=== PATIENT | female | born 2005 | race Caucasian/White ===

== ENCOUNTER 2024-07-08 09:58 | Emergency (ER) | payer BC, SELFPAY ==
[2024-07-08 10:11] VITALS: BP 118/75
--- NOTE | 2024-07-08 11:28 | ED.GENMED ---
Addendum entered and electronically signed by Oliver Guzmán PA-C 07/11/24 09:02:
Urine culture shows greater than 100,000 colony-forming units of Klebsiella. Sensitivities reviewed. Called patient to discuss these results. Prescription for Omnicef 300 mg twice a day was sent to her pharmacy.
Original Note:
History of Present Illness
<Jorge A Vital DO - Last Filed: 07/09/24 09:25>
General
Chief Complaint: Abdominal Symptoms
Source: patient
Time Seen by Provider: 07/08/24 11:02
History of Present Illness
History of Present Illness:
18-year-old female presents to the emergency room complaining of abdominal pain. Pain is located in the right lower abdomen. Began 2 to 3 days ago and has been waxing and waning in intensity. This morning the pain was more severe. She had nausea
but no vomiting. No diarrhea or constipation. She denies any dysuria, frequency or abnormal vaginal discharge. Patient denies any possibility of . She has not taken anything for pain.
Phy Exam
<Jorge A Vital DO - Last Filed: 07/09/24 09:25>
Physical Exam
Physical Exam:
General: Awake, Alert, Oriented X3. No acute distress.
Vitals: unremarkable
Head: Atraumatic
Eyes: Pupils equal, EOMI
Throat: Airway intact, no exudates
Neck: Trachea midline
Lungs: Clear and equal b/l
Heart: Regular rate, no murmurs
Abd: Soft, right lower quadrant tenderness to palpation, No pulsatile mass
Neuro: Nonfocal
Skin: Warm, dry, no rash
Extremities: pulses equal b/l, no edema
Course
<Jorge A Vital DO - Last Filed: 07/09/24 09:25>
Orders/Labs/Results
Orders:
Orders
08/21/24 11:26
Test Result ONCE
US Pelvis [US Pelvis Only (non-obstetric)] Urgent
Comment:
Reason For Exam: r lower abd/pelvic pain
07/08/24 11:27
US Abdomen - Appendix Only Urgent
Comment:
Reason For Exam: rlq/pelvic pain
07/08/24 11:34
0.9% Sodium Chloride 1000 ml [Nss] 1,000 ml IV BOLUS
Ketorolac [Toradol] 15 mg IV NOW STA
07/08/24 11:39
Basic Metabolic Panel Urgent
Complete Blood Count/With Diff Urgent
HCG, Serum Qualitative Screen Urgent
07/08/24 12:29
Iohexol [Omnipaque] See Protocol PO NOW STA
07/08/24 13:25
CT Abd/pel W Iv And Oral Contr Urgent
Comment:
Reason For Exam: rlq pain
Iohexol [Omnipaque] See Protocol PO NOW STA
07/08/24 13:28
Urinalysis Reflex To Culture Urgent
Date Specimen was Collected: 07/08/24
Time Specimen was Collected: 13:24
Urine Microscopic Reflex Cult Urgent
Urine Culture Urgent
APRYL Source: U
Specimen Description:
Date Specimen was Collected: 07/08/24
Time Specimen was Collected: 13:24
Abnormal Lab Results
07/08/24 07/08/24
11:39 13:28
WBC 11.9 H 10^3/uL
(4.8-10.8)
Absolute Neuts (auto) 9.6 H 10^3/uL
(1.4-6.5)
Neutrophils % 80.2 H %
(42.2-75.2)
Lymphocytes % 14.4 L %
(20.5-51.1)
BUN 24 H mg/dl
(7-17)
Glucose 110 H mg/dl
(70-99)
Urine Ketones 1+ A
(Negative)
Leukocyte Esterase Rfl 1+ A
(Negative)
Urine Bacteria (Reflex) Many A
(Negative)
07/08/24 11:39
07/08/24 11:39
Vital Signs
Initial and Last Documented VS:
Initial Vital Signs
Temp Pulse Resp BP Pulse Ox
98.3 F 59 16 118/75 100
07/08/24 10:11 07/08/24 10:11 07/08/24 10:11 07/08/24 10:11 07/08/24 10:11
Last Documented Vital Signs
Temp Pulse Resp BP Pulse Ox
98.7 F 59 18 106/70 99
07/08/24 16:50 07/08/24 16:50 07/08/24 16:50 07/08/24 16:50 07/08/24 16:50
<Anne Ware, DO - Last Filed: 07/08/24 17:22>
Orders/Labs/Results
Orders:
Orders
07/08/24 11:26
Test Result ONCE
US Pelvis [US Pelvis Only (non-obstetric)] Urgent
Comment:
Reason For Exam: r lower abd/pelvic pain
07/08/24 11:27
US Abdomen - Appendix Only Urgent
Comment:
Reason For Exam: rlq/pelvic pain
07/08/24 11:34
0.9% Sodium Chloride 1000 ml [Nss] 1,000 ml IV BOLUS
Ketorolac [Toradol] 15 mg IV NOW STA
07/08/24 11:39
Basic Metabolic Panel Urgent
Complete Blood Count/With Diff Urgent
HCG, Serum Qualitative Screen Urgent
07/08/24 12:29
Iohexol [Omnipaque] See Protocol PO NOW STA
07/08/24 13:25
CT Abd/pel W Iv And Oral Contr Urgent
Comment:
Reason For Exam: rlq pain
Iohexol [Omnipaque] See Protocol PO NOW STA
07/08/24 13:28
Urinalysis Reflex To Culture Urgent
Date Specimen was Collected: 07/08/24
Time Specimen was Collected: 13:
Urine Microscopic Reflex Cult Urgent
Urine Culture Urgent
APRYL Source: U
Specimen Description:
Date Specimen was Collected: 07/08/24
Time Specimen was Collected: :
Abnormal Lab Results
07/08/24 07/08/24
11:39 13:28
WBC 11.9 H 10^3/uL
(4.8-10.8)
Absolute Neuts (auto) 9.6 H 10^3/uL
(1.4-6.5)
Neutrophils % 80.2 H %
(42.2-75.2)
Lymphocytes % 14.4 L %
(20.5-51.1)
BUN 24 H mg/dl
(7-17)
Glucose 110 H mg/dl
(70-99)
Urine Ketones 1+ A
(Negative)
Leukocyte Esterase Rfl 1+ A
(Negative)
Urine Bacteria (Reflex) Many A
(Negative)
07/08/24 11:39
07/08/24 11:39
Vital Signs
Initial and Last Documented VS:
Initial Vital Signs
Temp Pulse Resp BP Pulse Ox
98.3 F 59 16 118/75 100
07/08/24 10:11 07/08/24 10:11 07/08/24 10:11 07/08/24 10:11 07/08/24 10:11
Last Documented Vital Signs
Temp Pulse Resp BP Pulse Ox
98.7 F 59 18 106/70 99
07/08/24 16:50 07/08/24 16:50 07/08/24 16:50 07/08/24 16:50 07/08/24 16:50
<Jorge A Vital, DO - Last Filed: 07/09/24 09:25>
MDM/Problems Addressed
Differential Diagnosis Includes:
ovarian cyst, appy, constipation
MDM/Problems Addressed:
Pt presents with rlq pain. Initial u/s neg. CT also negative for acute process. STable for discharge
<Jorge A Vital, DO - Last Filed: 07/09/24 09:25>
*Radiology
Radiology exam reviewed: radiology read reviewed
*Pulse Oximetry
Patient hypoxic: no
*Critical Care Note
Total Time (30-74mins, 75-104mins- exclusive of procedures): Not Applicable
<Anne Ware, DO - Last Filed: 07/08/24 17:22>
Update Note
Update Note:
ED ATTENDING SIGN OUT NOTE
13:30 -assuming care of patient, 18-year-old female without significant past medical history presenting for right lower quadrant pain. Patient hemodynamically stable in the emergency department, reproducible pain to the right lower quadrant on
exam. Workup significant for mild leukocytosis, negative . Patient initially had ultrasound imaging of the pelvis and appendix, unremarkable. However, pain is still present. For this reason, plan for CT abdominal imaging with IV and
oral contrast. Patient currently drinking contrast.
17:00 -CT without acute process, does show some constipation which could be contributing to patient's symptoms. Patient otherwise remains hemodynamically stable, abdominal exam remains benign. Advised Tylenol or Motrin as needed for pain going
forward. Return precautions discussed and patient verbalized understanding.
ED Attending Note
<Jorge A Vital, DO - Last Filed: 07/09/24 09:25>
-
Portions of this chart may have been created with voice recognition software.� Occasional wrong word or��sound alike� substitutions may have occurred due to the inherent limitations of voice recognition software.
Discharge Plan
Departure
Patient Disposition: Home (Routine Discharge)
Date of Disposition: 07/08/24
Time of Disposition: 17:22
Patient with high blood pressure during this ER visit?: No
Condition: Good
Discharge Problem:
Abdominal pain, Constipation
Instructions: Constipation in adults, Abdominal Pain
Referrals:
NONE,* [Family Provider] -
Activity Restrictions/Additional Instructions:
You were seen in the emergency department for abdominal pain
You were found to have normal laboratory analysis, ultrasound imaging, CT abdominal imaging
Please follow-up closely with your primary care physician.
Return to the emergency department for any worsening of your symptoms, or any development of chest pain, difficulty breathing, abdominal pain with persistent vomiting and inability to tolerate food or liquid by mouth (concern for dehydration),
weakness, headache or confusion, fever greater than 100.4, or any additional symptoms that are concerning to you.
Thank you for choosing [facility].
Interventions
Interventions:
*Risk Screen - Suicide Last Done: 07/08/24 12:31
*General Assessment Last Done: 07/08/24 12:31
*Neglect/Abuse Screening Last Done: 07/08/24 12:31
ED- Fall Risk Assessment Last Done: 07/08/24 17:47
*Nursing Disposition Last Done: 07/08/24 17:47
ZZ-Alvudf-Vjvyhaaxnm Assessment Last Done: 07/08/24 12:31
Discharge Date and Time
Discharge Date/Time: 07/08/24 17:47
Print Language: CHINESE
[2024-07-08] MEDS: TORADOL 15 MG IV (11:38)
[2024-07-08] MEDS: NSS 1000 IV (11:38)
[2024-07-08 11:49] LABS: % Basophils 0.5 % (0-2); % Eosinophils 0.3 % (0-6); % Immature Granulocytes 0.3 % (0-0.5); % Lymphocytes 14.4 % (20.5-51.1); % Monocytes 4.3 % (1.7-9.3); % Neutrophils 80.2 % (42.2-75.2); Absolute Basophils 0.1 10^3/uL (0-0.2); Absolute Lymphocytes 1.7 10^3/uL (1.2-3.4); Absolute Monocytes 0.5 10^3/uL (0.1-0.6); Absolute Neutrophils 9.6 10^3/uL (1.4-6.5); Hematocrit 38.2 % (37.0-47.0); Hemoglobin 13.2 g/dL (12.0-16.0); Mean Corp Hgb Conc. 34.6 g/dL (33.0-37.0); Mean Corpuscular Hgb 28.1 pg (27.0-31.0); Mean Corpuscular Volume 81.3 fL (81.0-99.0); Mean Platelet Volume 9.3 fL (7.4-10.4); Nucleated Red Blood Cells % 0 %; Platelet Count 262 10^3/uL (130-400); Red Cell Dist. Width 12.3 % (11.5-14.5); White Blood Cell Count 11.9 10^3/uL (4.8-10.8)
[2024-07-08 12:05] LABS: HCG, Serum Qualitative Screen Negative
[2024-07-08 12:08] LABS: Blood Urea Nitrogen 24 mg/dl (7-17); Calcium 9.3 mg/dl (8.4-10.2); Carbon Dioxide 26 mmol/L (22-30); Chloride 104 mmol/L (98-107); Glucose 110 mg/dl (70-99); Sodium 138 mmol/L (135-145); eGFR > 60.00
[2024-07-08] MEDS: OMNIPAQUE 50 ML PO (13:25)
[2024-07-08 14:02] LABS: Urine Albumin Negative (Neg - Trace); Urine Bilirubin Negative (Negative); Urine Character Slightly Cloudy (Clear); Urine Color Yellow; Urine Glucose Negative (Negative); Urine Ketone 1+ (Negative); Urine Leukocyte 1+ (Negative); Urine Nitrite Negative (Negative); Urine Occult Blood Negative (Negative); Urine Urobilinogen Negative (Neg - 1+)
[2024-07-08 15:15] LABS: Urine Bacteria Many (Negative); Urine Squamous Cell >30 /LPF (Few)
[2024-07-08 15:16] LABS: Urine Red Blood Cell None Seen /HPF (0-2)
[2024-07-08 16:50] VITALS: BP 106/70
== END 2024-07-08 17:47 | disposition home or self-care (01) ==
LOC: EMR 09:58
PROVIDERS: Emergency Medicine; EMERGENCY PHYSICIAN Student in an Organized Health Care Education/Training Program
DX: K59.00 Constipation, unspecified (principal); R10.31 Right lower quadrant pain; R10.2 Pelvic and perineal pain; R11.0 Nausea; N39.0 Urinary tract infection, site not specified
CPT/HCPCS: 99285; 96361; 96374; 74177; 76705; 76856; 80048; 81003; 81015; 84703; 85025; 87077; 87086; 87186; Q9967

== ENCOUNTER 2024-07-11 09:16 | Emergency (ER) | payer BC, SELFPAY ==
[2024-07-11 09:29] VITALS: BP 113/73
[2024-07-11 10:07] VITALS: BMI 23.2
--- NOTE | 2024-07-11 10:44 | ED.GENMED ---
History of Present Illness
General
Chief Complaint: Abdominal Symptoms
Source: patient
Exam Limitations: none
Time Seen by Provider: 07/11/24 10:43
Nursing documentation reviewed up to this point in time: agreed with
History of Present Illness
History of Present Illness:
Patient is a 18-year-old female who presents to the ER for evaluation. Patient was seen here on Saturday 3 days ago for abdominal pain. She had a full workup including ultrasound and CAT scan and both were unremarkable for any acute findings.
CAT scan did show some constipation. Patient received a phone call today from our emergency provider stating that urine culture does show Klebsiella and patient was prescribed Omnicef twice a day which were sent to her pharmacy. Patient presents
to the ER today for evaluation. Patient reports over the past several days since being here she is feeling very anxious. She is a history of anxiety but typically her anxiety symptoms will go away but this episode is not. She feels pressure in
her chest palpitations and she feels like she cannot stop thinking about her anxiety. She is a daily marijuana smoker. She admits to smoking several times a day since high school and last stopped yesterday morning because she was trying to stop
smoking. Since then her anxiety has worsened. She is a [employer] student and did make an appointment to speak to a counselor there(appointment next week).
She has some mild lower abdominal discomfort but that is really not bothering her she is primarily concerned about this anxiety and her heart racing/chest pressure sensation.
Review of Systems
Review of Systems
Allergies reviewed?: Yes
All Other Systems: ROS reviewed and negative except as documented in HPI and ROS
Constitutional: Reports no symptoms; Denies fever, fatigue or chills
EENT: Reports no symptoms
Cardiac: Reports palpitations and other (chest pressure )
ABD/GI: Reports no symptoms; Denies abdominal pain, nausea or vomiting
: Reports no symptoms
Musculoskeletal: Reports no symptoms
Skin: Reports no symptoms
Neurological: Reports no symptoms
Psychiatric: Reports no symptoms
Phy Exam
General Physical Exam
General Presentation: no apparent distress
General age: appears stated age
General Skin: warm and dry
General Habitus: normal
General Mental: alert
General Hydration: appears well hydrated
Cardiovascular Exam
Cardiovascular Exam: regular rate/rhythm, no murmur and normal peripheral pulses
Pulmonary Exam
Pulmonary Exam: lungs clear and no respiratory distress
Gastrointestinal Exam
Gastrointestinal Exam: non tender and soft
Neurological Exam
Neurological Exam: alert and oriented x3
Musculoskeletal Exam
Musculoskeletal Exam: full ROM
Skin Exam
Skin Exam: normal color and warm/dry
Psychiatric Exam
Psychiatric Exam: anxious
Course
Orders/Labs/Results
Orders:
Orders
07/11/24 11:00
Electrocardiogram (*1) Stat
Reason for Study: Other
Other Reason for Exam: chest pain
Crisis Consult Urgent
Reason for Consult: provide resources for anxiety
EKG- Treatment ONCE
07/11/24 12:43
Chest [CR Chest - 2 Views ] Urgent
Comment:
Reason For Exam: sob
07/11/24 12:52
Complete Blood Count/With Diff Urgent
Comprehensive Metabolic Panel Urgent
DDimer [D-Dimer] Urgent
Troponin I Urgent
Abnormal Lab Results
07/11/24
12:52
Absolute Neuts (auto) 7.2 H 10^3/uL
(1.4-6.5)
Neutrophils % 80.4 H %
(42.2-75.2)
Lymphocytes % 15.7 L %
(20.5-51.1)
Carbon Dioxide 18 L mmol/L
(22-30)
07/11/24 12:52
07/11/24 12:52
Vital Signs
Initial and Last Documented VS:
Initial Vital Signs
Temp Pulse Resp BP Pulse Ox
98.0 F 72 18 113/73 100
07/11/24 09:29 07/11/24 09:29 07/11/24 09:29 07/11/24 09:29 07/11/24 09:29
Last Documented Vital Signs
Temp Pulse Resp BP Pulse Ox
98.6 F 62 16 114/75 100
07/11/24 12:00 07/11/24 14:54 07/11/24 12:00 07/11/24 14:54 07/11/24 09:29
MDM/Problems Addressed
Differential Diagnosis Includes:
Not limited to anxiety, UTI
MDM/Problems Addressed:
Symptoms are consistent with anxiety. Patient has a history of anxiety and for the past several days since being here in the hospital has been very anxious. She also is a daily marijuana smoker and tried to stop smoking and last smoked yesterday.
Since then she has had some chest pressure palpitations anxiety sweats. She reports typically in the past her anxiety would go away over the past several days but this is not going away. She was seen here several days ago as documented and was
called today stating that she does have a urine infection and prescribed cefdinir at local pharmacy. She denies any UTI symptoms does have some lower abdominal pressure. She is nontoxic no fever and is afebrile here.
Will check EKG. 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 She also feels that this is anxiety. She is willing to accept resources
from crisis. She is not suicidal.
She is understanding of instructions to get this medicine filled at the local pharmacy and to take as directed.
12:35: back to assess patient prior to discharge however patient complains of chest tightness that she does feel this is anxiety but is concerned. Lungs remain clear she is not hypoxic we will check labs including D-dimer the patient has no risk
factors. She does smoke marijuana she is not on blood thinners no prior history of DVT and no family history Clotting disorder.
ddimer nml troponin nml and neg chest. will dc/ home s/s consistent w/ anxiety.
*Pulse Oximetry
Patient hypoxic: no
*EKG
Interpreted by ED Provider?: Yes
Interpretation: normal
Comparison EKG: no comparison EKG present
Heart Rate: 59
Rate: normal
Rhythm: sinus
*Critical Care Note
Total Time (30-74mins, 75-104mins- exclusive of procedures): Not Applicable
ED Attending Note
-
Portions of this chart may have been created with voice recognition software.� Occasional wrong word or��sound alike� substitutions may have occurred due to the inherent limitations of voice recognition software.
Discharge Plan
Departure
Patient Disposition: Home (Routine Discharge)
Date of Disposition: 07/11/24
Time of Disposition: 14:43
Patient with high blood pressure during this ER visit?: No
Condition: Fair
Covid-19: Not Applicable
Discharge Problem:
Anxiety
Instructions: Anxiety, Adult ED, Urinary Tract Infection, Adult ED
Prescriptions:
No Action
cefdinir 300 mg capsule
300 mg PO BID Qty: 14 0RF
Referrals:
[facility] [Provider Group]
[facility] [Outside]
NONE,* [Family Provider] -
Activity Restrictions/Additional Instructions:
As discussed earlier this morning a prescription was sent to your pharmacy for your urinary tract infection take as directed. [facility] with [facility] in the next several days. You may also follow-up with family practice clinic here for
reevaluation return if any worsening of symptoms of increased abdominal pain nausea vomiting back pain fever chills.
You were given a list of resources for outpatient counselor, therapy. Return if any worsening of symptoms.
Interventions
Interventions:
*Risk Screen - Suicide Last Done: 07/11/24 14:54
*General Assessment Last Done: 07/11/24 10:08
*Neglect/Abuse Screening Last Done: 07/11/24 10:08
ED- Fall Risk Assessment Last Done: 07/11/24 10:08
*ED COVID-19 Vaccine History Last Done: 07/11/24 10:08
*Nursing Disposition Last Done: 07/11/24 14:54
ON-Srrgjh-Tnokwfxgjw Assessment Last Done: 07/11/24 10:12
Discharge Date and Time
Discharge Date/Time: 07/11/24 14:58
Print Language: RUSSIAN
[2024-07-11 12:00] VITALS: BP 110/70
[2024-07-11 13:18] LABS: % Basophils 0.4 % (0-2); % Immature Granulocytes 0.2 % (0-0.5); % Lymphocytes 15.7 % (20.5-51.1); % Monocytes 3.3 % (1.7-9.3); % Neutrophils 80.4 % (42.2-75.2); Absolute Lymphocytes 1.4 10^3/uL (1.2-3.4); Absolute Monocytes 0.3 10^3/uL (0.1-0.6); Absolute Neutrophils 7.2 10^3/uL (1.4-6.5); Hematocrit 37.7 % (37.0-47.0); Hemoglobin 13.2 g/dL (12.0-16.0); Mean Corpuscular Hgb 28.4 pg (27.0-31.0); Mean Corpuscular Volume 81.1 fL (81.0-99.0); Mean Platelet Volume 9.5 fL (7.4-10.4); Nucleated Red Blood Cells % 0 %; Platelet Count 266 10^3/uL (130-400); Red Blood Cell Count 4.65 10^6/uL (4.20-5.40)
[2024-07-11 13:33] LABS: ALT (SGPT) 16 U/L (0-35); AST (SGOT) 24 U/L (14-36); Albumin 4.7 g/dl (3.5-5.0); Alkaline Phosphatase 78 U/L (38-126); Blood Urea Nitrogen 15 mg/dl (7-17); Calcium 9.9 mg/dl (8.4-10.2); Carbon Dioxide 18 mmol/L (22-30); Chloride 105 mmol/L (98-107); Estimated Creatinine Clearance 112 ml/min; Glucose 95 mg/dl (70-99); Potassium 4.2 mmol/L (3.5-5.1); Sodium 139 mmol/L (135-145); Total Bilirubin 0.9 mg/dl (0.2-1.3); Total Protein 7.5 g/dl (6.3-8.2); eGFR > 60.00
[2024-07-11 13:46] LABS: Troponin I < 0.012 ng/ml
[2024-07-11 14:29] LABS: D-Dimer < 0.27 ug/mlFEU (0.00-0.50)
[2024-07-11 14:54] VITALS: BP 114/75
== END 2024-07-11 14:58 | disposition home or self-care (01) ==
LOC: EMR 09:16
PROVIDERS: Nurse Practitioner; EMERGENCY PHYSICIAN Emergency Medicine
DX: F41.9 Anxiety disorder, unspecified (principal); F17.200 Nicotine dependence, unspecified, uncomplicated
CPT/HCPCS: 99283; 71046; 80053; 84484; 85025; 85379; 93005

== ENCOUNTER 2024-08-05 20:38 | Emergency (ER) | payer BC, SELFPAY ==
[2024-08-05 20:41] VITALS: BP 140/90
[2024-08-05 21:19] VITALS: BP 124/78
[2024-08-05 22:29] VITALS: BP 107/68
[2024-08-05 23:00] VITALS: BP 104/74
--- NOTE | 2024-08-05 23:04 | ED.GENMED ---
History of Present Illness
General
Chief Complaint: Abdominal Symptoms
Source: patient
Exam Limitations: none
Time Seen by Provider: 08/05/24 21:43
History of Present Illness
History of Present Illness:
This is a 18 year old female that comes in with c/o abd pain. States that for the past month she has had abd pain, diarrhea, nausea and gas and sometimes heart burn. States that there has started to be some blood in the stool. States that today she
has a headache, felt lightheaded and nauseated. States that the blood is bright red. States that her abd pain is more on the left sided and epigastric area. States that she did not vomit today but has vomited in the past. Denies any fever, chills,
chest pain, SOB, urinary burning.
Past History
Past History
ED Past Medical History: Psychiatric (Anxiety)
ED Past Surgical History: None
Social History
Tobacco: Non-smoker
Alcohol: None
Personal: Single
Living: with family
Review of Systems
Review of Systems
All Other Systems: ROS reviewed and negative except as documented in HPI and ROS
Constitutional: Reports no symptoms; Denies fever or chills
EENT: Reports no symptoms
Respiratory: Reports no symptoms; Denies cough or trouble breathing
Cardiac: Reports no symptoms; Denies chest pain
ABD/GI: Reports abdominal pain, nausea, diarrhea and bloody stools; Denies vomiting
: Reports no symptoms; Denies dysuria, frequency or urgency
Musculoskeletal: Reports no symptoms
Skin: Reports no symptoms
Neurological: Reports headache (across the forehead) and other (Lightheaded)
Psychiatric: Reports no symptoms
Phy Exam
General Physical Exam
General Presentation: well appearing and no apparent distress
General age: appears stated age
General Skin: warm and dry
General Habitus: normal
General Mental: alert
General Hydration: appears well hydrated
ENT Exam
ENT Exam: TM's normal, pharynx normal and neck supple
Eye Exam
Eye Exam: EOMI
Cardiovascular Exam
Cardiovascular Exam: regular rate/rhythm, no edema, no murmur and normal peripheral pulses
Pulmonary Exam
Pulmonary Exam: lungs clear, no respiratory distress, no rales, chest non tender, no crackles, no rhonchi, no wheezing and no cough
Gastrointestinal Exam
Gastrointestinal Exam: normal bowel sounds, soft, no organomegaly, no pulsatile mass, non distended, tender (Left sided and epigastric tenderness with palpation) and other (Stool brown hem negative. )
Musculoskeletal Exam
Musculoskeletal Exam: full ROM and no edema
Skin Exam
Skin Exam: normal color, warm/dry, no rash and no petechia
Psychiatric Exam
Psychiatric Exam: normal mood/affect
Course
Orders/Labs/Results
Orders:
Orders
08/05/24 23:03
0.9% Sodium Chloride 1000 ml [Nss] 1,000 ml IV BOLUS
Iohexol [Omnipaque] See Protocol PO NOW STA
Pantoprazole [Protonix IV] 40 mg IV NOW STA
Test Result ONCE
08/05/24 23:04
Ketorolac [Toradol] 30 mg IV NOW STA
08/05/24 23:19
Complete Blood Count/With Diff Urgent
Comprehensive Metabolic Panel Urgent
HCG, Serum Qualitative Screen Urgent
08/06/24 01:05
Ondansetron Injectable [Zofran] 4 mg IV NOW STA
08/06/24 01:20
CT Abd/pel W Iv And Oral Contr Urgent
Reason For Exam: left sided and upper abd pain
Abnormal Lab Results
08/05/24
23:19
MCV 77.6 L fL
(81.0-99.0)
Absolute Lymphs (auto) 3.5 H 10^3/uL
(1.2-3.4)
Neutrophils % 36.7 L %
(42.2-75.2)
Lymphocytes % 52.2 H %
(20.5-51.1)
Carbon Dioxide 20 L mmol/L
(22-30)
08/05/24 23:19
08/05/24 23:19
Carbon dioxide slightly low. HCG negative,
Vital Signs
Initial and Last Documented VS:
Initial Vital Signs
Temp Pulse Resp BP Pulse Ox
99.0 F 65 20 140/90 99
08/05/24 20:41 08/05/24 20:41 08/05/24 20:41 08/05/24 20:41 08/05/24 20:41
Last Documented Vital Signs
Temp Pulse Resp BP Pulse Ox
99.0 F 65 20 104/74 99
08/05/24 20:41 08/05/24 20:41 08/05/24 20:41 08/05/24 23:00 08/05/24 23:32
MDM/Problems Addressed
Differential Diagnosis Includes:
Colitis,
MDM/Problems Addressed:
This is a 18 year old female that comes in with c/o abd pain, nausea, vomiting, diarrhea, and blood in her stool. States that the bright red bleeding started today along with a headache.
Will check labs, CT abd/pelvis. give IV fluids and pain medication.
Back into see patient. Explained that her blood work is normal along with the CT scan. There is no inflammatory process, obstruction or any other acute process. Patient states that she has a GI appointment in [facility] on Saturday next week. Will
give patient a disc to take with her for the GI to see. Patient to return with any concerns.
Chronic conditions affecting care:
NA
Acute Exacerbation and/or Progression of Chronic Illness:
NA
*Radiology
Radiology exam reviewed: radiology read reviewed (CT- Night hawk-No acute findings. No bowel inflammation or obstruction. Normal appendix. Unremarkable CT appearance of the gallbladder and pancreas. No obstructive uropathy. No suspicious free fluid
or free air. Normal-sized ovaries. )
*Pulse Oximetry
Patient hypoxic: no
*EKG
Interpreted by ED Provider?: NA
Rate: EKG- N/A
*Pellet Press Operator Interpretation
Rate: Pellet Press Operator- N/A
*Critical Care Note
Total Time (30-74mins, 75-104mins- exclusive of procedures): Not Applicable
ED Attending Note
-
Portions of this chart may have been created with voice recognition software.� Occasional wrong word or��sound alike� substitutions may have occurred due to the inherent limitations of voice recognition software.
Discharge Plan
Departure
Patient Disposition: Home (Routine Discharge)
Date of Disposition: 08/06/24
Time of Disposition: 02:14
Patient with high blood pressure during this ER visit?: No
Condition: Good
Covid-19: Not Applicable
Discharge Problem:
Abdominal pain
Instructions: Abdominal Pain
Prescriptions:
No Action
cefdinir 300 mg capsule
300 mg PO BID Qty: 14 0RF
Referrals:
NONE,* [Family Provider] -
Activity Restrictions/Additional Instructions:
As discussed, your blood work is normal. Your CT is negative for any inflammatory process or acute disease. Please follow up with the GI specialist as scheduled. Please increase your water intake to 8-8oz glasses daily. Tylenol for any headache
pain. Please try and stay away from Aleve, Advil or Motrin as they can cause bleeding. IF YOU HAVE INCREASED OR CHANGING PAIN, OR YOU HAVE ANY OTHER CONCERNS PLEASE RETURN TO THE EMERGENCY ROOM.
Interventions
Interventions:
*Risk Screen - Suicide Last Done: 08/05/24 20:41
*General Assessment Last Done: 08/05/24 20:41
*Neglect/Abuse Screening Last Done: 08/05/24 21:14
ED- Fall Risk Assessment Last Done: 08/05/24 21:14
*ED COVID-19 Vaccine History Last Done: 08/05/24 21:14
ER-Khnvqg-Xezsqsbhjs Assessment Last Done: 08/05/24 21:14
Discharge Date and Time
Print Language: DOMINICAN
[2024-08-05] MEDS: PROTONIX IV 40 MG IV (23:24)
[2024-08-05] MEDS: OMNIPAQUE 50 ML PO (23:24)
[2024-08-05] MEDS: TORADOL 30 MG IV (23:25)
[2024-08-05] MEDS: NSS 1000 IV (23:25)
[2024-08-05 23:43] LABS: Hemoglobin 13.1 g/dL (12.0-16.0); Mean Corp Hgb Conc. 35.4 g/dL (33.0-37.0); Mean Corpuscular Hgb 27.5 pg (27.0-31.0); Mean Corpuscular Volume 77.6 fL (81.0-99.0); Mean Platelet Volume 9.4 fL (7.4-10.4); Platelet Count 341 10^3/uL (130-400); Red Blood Cell Count 4.77 10^6/uL (4.20-5.40); Red Cell Dist. Width 12.6 % (11.5-14.5); White Blood Cell Count 6.7 10^3/uL (4.8-10.8)
[2024-08-05 23:45] LABS: HCG, Serum Qualitative Screen Negative
[2024-08-05 23:47] LABS: ALT (SGPT) 18 U/L (0-35); AST (SGOT) 25 U/L (14-36); Albumin 4.6 g/dl (3.5-5.0); Alkaline Phosphatase 74 U/L (38-126); Blood Urea Nitrogen 15 mg/dl (7-17); Calcium 9.5 mg/dl (8.4-10.2); Carbon Dioxide 20 mmol/L (22-30); Chloride 106 mmol/L (98-107); Glucose 89 mg/dl (70-99); Sodium 144 mmol/L (135-145); Total Bilirubin 0.6 mg/dl (0.2-1.3); Total Protein 7.2 g/dl (6.3-8.2); eGFR > 60.00
[2024-08-06 00:03] LABS: % Basophils 0.9 % (0-2); % Eosinophils 1.3 % (0-6); % Immature Granulocytes 0.1 % (0-0.5); % Lymphocytes 52.2 % (20.5-51.1); % Monocytes 8.8 % (1.7-9.3); % Neutrophils 36.7 % (42.2-75.2); Absolute Basophils 0.1 10^3/uL (0-0.2); Absolute Eosinophils 0.1 10^3/uL (0-0.7); Absolute Lymphocytes 3.5 10^3/uL (1.2-3.4); Absolute Monocytes 0.6 10^3/uL (0.1-0.6); Absolute Neutrophils 2.4 10^3/uL (1.4-6.5); Nucleated Red Blood Cells % 0 %
[2024-08-06] MEDS: ZOFRAN 4 MG IV (01:08)
== END 2024-08-06 02:23 | disposition home or self-care (01) ==
LOC: EMR 20:38
PROVIDERS: Clinical Nurse Specialist Family Health; EMERGENCY PHYSICIAN Emergency Medicine
DX: R10.10 Upper abdominal pain, unspecified (principal); R19.7 Diarrhea, unspecified; R11.0 Nausea; R42 Dizziness and giddiness; R12 Heartburn; K92.1 Melena; R51.9 Headache, unspecified; R10.13 Epigastric pain; F41.9 Anxiety disorder, unspecified
CPT/HCPCS: 99284; 96374; 96375 ×2; 74177; 80053; 84703; 85025; Q9967